=== PATIENT | male | born 1965 | race Caucasian/White ===

== ENCOUNTER 2017-09-09 07:13 | Observation (INO) | payer OTHER ==
[2017-09-09] MEDS ORDERED: NS 1,000 ML IV ONE (07:15)
--- NOTE | 2017-09-09 07:37 | CPEKG ---
Heart Rate: 48 RR Interval: 1250 P-R Interval: 176 QRSD Interval: 90 QT Interval: 460 QTC Interval: 411 P [place]: 33 QRS [place]: 58 T Wave [place]: 49 EKG Severity - OTHERWISE NORMAL ECG - EKG Impression: SINUS BRADYCARDIA Electronically Signed By: Heladio Zaragoza 09-Sep-2017 11:01:50
[2017-09-09] MEDS ORDERED: HEPARIN 10,000 UNIT/10 ML MDV (1,000 UNIT/ML) ONE (07:40)
[2017-09-09] MEDS ORDERED: LIDOCAINE 1% 300 MG/30 ML SDV ONE (07:40)
[2017-09-09] MEDS ORDERED: ISOPROTERENOL HCL/D5W 0.2 MG/50 ML BAG IV ONE ×2 (07:41→10:30)
[2017-09-09] MEDS ORDERED: BUPIVACAINE 0.75% 10 ML SDV EP ONE (07:45)
--- NOTE | 2017-09-09 08:05 | PDANEPAE ---
ANE History of Present Illness SVT ANE Past Medical History - Pulmonary History Hx Sleep Apnea: No ANE Review of Systems Review of Systems: ANE Patient History - Allergies Allergies/Adverse Reactions: No Known Allergies Allergy (Unverified 09/07/17 09:59) - Home Medications Home medications: home medication list seen and reviewed Home Medications: NK [No Known Home Meds] 09/07/17 [Last Taken Unknown] - Anes Hx Anes Hx: post operative nausea - Smoking Hx Smoking Status: Never smoked ANE Labs/Vital Signs - Labs Result Diagrams: 09/09/17 07:40 09/09/17 07:40 - Vital Signs Height: 182.9 cm Weight: 77.2 kg ANE Physical Exam - Airway Neck exam: FROM Mallampati Score: Class 1 Mouth exam: normal dental/mouth exam - Pulmonary Pulmonary: no respiratory distress - Cardiovascular Cardiovascular: regular rate and rhythym - ASA Status ASA Status: II ANE Anesthesia Plan Anesthesia Plan: general endotracheal anesthesia
[2017-09-09 08:31] LABS: PROTIME(PATIENT) 12.4 SEC (12.0-15.0)
[2017-09-09 08:33] LABS: INR 0.9 (0.83-1.16)
[2017-09-09 08:37] LABS: PLATELET COUNT 188 10^3/uL (150-400)
[2017-09-09] MEDS ORDERED: ROCURONIUM 100 MG/10 ML VIAL ONE (08:42)
[2017-09-09] MEDS ORDERED: fentaNYL 100 MCG/2 ML INJ ONE ×2 (08:42)
[2017-09-09] MEDS ORDERED: PROPOFOL 200 MG/20 ML VIAL ONE (08:42)
[2017-09-09] MEDS ORDERED: PROPOFOL/EMULSION 500 MG/50 ML BOTTLE IV ONE (08:44)
--- NOTE | 2017-09-09 08:47 | PDGENHP ---
History & Physical Chief Complaint: Palpitations Relevant Physical Exam: S1-S2 regular rate and rhythm lungs clear to auscultation alert oriented x3 Cardiorespiratory Assessment: 52-year-old male with longstanding palpitations. Supraventricular tachycardia documented on exercise treadmill stress test. For EP study and ablation procedure. Pros and cons of procedure with sedation, no sedation, anesthesia discussed with him. Patient prefers to proceed with general anesthesia. Dr. Richmond was present for this discussion
[2017-09-09] MEDS ORDERED: ONDANSETRON 4 MG/2 ML VIAL ONE (09:13)
[2017-09-09] MEDS ORDERED: DEXAMETHASONE 4 MG/ML VIAL ONE (09:13)
--- NOTE | 2017-09-09 10:54 | EPPROC ---
Electrophysiology Procedure Note: ELECTROPHYSIOLOGIC STUDY AND CATHETER MEDIATED ABLATION OF SLOW/FAST AV BRENDA REENTRY TACHYCARDIA PROCEDURES PERFORMED: 03628-95 EP evaluation with RA/RV/LA pace/record, with arrhythmia induction 81157-68 EP evaluation with RA/RV pace record, insert/reposition catheter, with arrhythmia induction 52086 Intracardiac catheter ablation, SVT arrhythmogenic focus 37999 3D mapping Fluoroscopy INDICATION: Recurrent SVT PROCEDURE: Catheters & Anesthesia: The patient arrived in the Electrophysiology Laboratory in the fasting state. The right clavicular region, right groin, and left groin area were prepped and draped in the usual sterile manner. Anesthesiologist Dr. Richmond administered general anesthesia. Appropriate non-invasive blood pressure, pulse oximetry and end-tidal CO2 monitoring was established. All catheters were placed percutaneously using the modified Seldinger technique , and advanced into position under fluoroscopic guidance. One #6 Austrian hexapolar non-deflectable electrode catheter was inserted into the right atrial appendage via the left femoral vein (2mm spacing; except the proximal ring which was 25cm from the tip used for unipolar recordings). One #7 Austrian deflectable octapolar electrode catheter was advanced to the His-bundle position via the left femoral vein (2mm spacing). One #7 Austrian deflectable quadrapolar catheter was advanced to the anteroseptal right ventricle via the right femoral vein. One #7 Austrian deflectable catheter with 10 pairs of electrodes was placed via the right femoral vein into the coronary sinus. Heparin was given to keep ACT > 200 s. Programmed stimulation was performed from the right atrium, right ventricle and coronary sinus (left atrium). Parahisian pacing demonstrated constant H-A interval with changing V-A intervals and stimulus-A intervals during capture and loss of capture of proximal RBB proving retrograde conduction over AV node. AVNRT was induced easily during infusion of isoproterenol 4 mcg/min. Ventricular extrastimuli delivered during tachycardia without altering antegrade His bundle activation did not advance next atrial potential, indicating that the tachycardia was not utilizing an accessory pathway for retrograde conduction. VA interval was 5 ms. Post entrainment of the tachycardia from the ventricle, there was VAHV response. Mapping of the right atrium and coronary sinus during AVNRT identified earliest atrial activation above the tendon of [place] at a level slightly posterior to the level of the His bundle, consistent with retrograde conduction over the fast AV brenda pathway. A #8 Austrian deflectable quadrapolar electrode catheter (2mm-5mm-2mm spacing) with 4 mm tip electrode and sensor for the 3D mapping Carto system was advanced to the right atrium. 3 D mapping of the inter-atrial septum and coronary sinus was performed and location of the AV node was marked. A SL2 sheath was used. RF applications were delivered to the region between the tricuspid annulus and the coronary sinus ostium, at the level of the upper edge of the coronary sinus ostium. Radiofrequency applications were also delivered along the roof of the proximal coronary sinus. Junctional rhythm occurred during all of the RF applications. Programmed stimulation was continued post ablation at baseline and during graded doses of isoproterenol upto 4mcg/min. Sustained AVNRT was not inducible. There were no echo beats. There was 1 episode of atrial tachycardia, CL 425 ms, induced during isoproterenol infusion 4 mcg/min. This was not targeted for ablation since we could not re-induce it. Early activation was near the right atrial appendage catheter. The catheters were removed. Sheaths were removed in the EP lab after applying subcutaneous purse string suture. The patient was transferred to the cardiovascular holding area in stable condition. There were no apparent complications. Results: A. Spontaneous Intervals: Pre ablation SCL 930 ms AH 80 ms HV 45 ms Post ablation SCL 760 ms AH 75 ms HV 45 ms B. Antegrade AV brenda function (decremental pacing) Pre ablation FPERP 540 ms SPERP 410 ms WBB CL 400 ms (AH jump from 210 ms to 360 ms at FPERP) Post ablation FPERP 410 ms WBB CL 400 ms C. Retrograde AV brenda function (decremental pacing) Pre ablation FPERP 420 ms WBB CL 410 ms D. Arrhythmias: Sustained slow/fast AVNRT Cycle length 375 ms, AH interval 265 ms, ROSS interval 110 ms VA interval 30 ms CONCLUSIONS 1. AV brenda reentrant tachycardia using the slow AV brenda pathway for antegrade conduction and the fast AV brenda pathway for retrograde conduction. ( Slow/fast AVNRT). 2. Successful ablation of the slow AV brenda pathway with elimination of 1:1 antegrade conduction over the slow AV brenda pathway, all retrograde conduction over the slow AV brenda pathway and the inducibility of AVNRT. 3. Right atrial tachycardia, CL 425 ms, seen on one instance x 3 min duration. Not able to reinduce. Not targeted for ablation. 4. No complications. Patient Problems: Problems Problem Status Onset Supraventricular tachycardia Acute
[2017-09-09] MEDS ORDERED: NALOXONE HCL 0.4 MG/ML INJ IVP PRN (11:02)
[2017-09-09] MEDS ORDERED: fentaNYL 100 MCG/2 ML INJ IVP PRN (11:02)
--- NOTE | 2017-09-09 11:03 | POSTANESTH ---
Post Anesthetic Evaluation Cardiovascular Status: Normal, Stable Respiratory Status: Normal, Stable Level of Consciousness/Mental Status: Can Participate in Eval Pain Control: Adequate, Prn Tx Ordered Nausea/Vomiting Control: Adequate, Prn Tx Ordered Complications Possibly Related to Anesthesia: None Noted
--- NOTE | 2017-09-09 11:12 | CPEKG ---
Heart Rate: 71 RR Interval: 845 P-R Interval: 204 QRSD Interval: 94 QT Interval: 424 QTC Interval: 461 P [place]: 67 QRS [place]: 47 T Wave [place]: 46 EKG Severity - NORMAL ECG - EKG Impression: SINUS RHYTHM Electronically Signed By: Heladio Zaragoza 09-Sep-2017 16:52:29
--- NOTE | 2017-09-09 15:14 | ASMTCMCOM ---
CM Note CM Note Notes: 09/09/2017 Case Management Note Reviewed chart. Pt admitted for observation s/p SVT ablation. There are no case management d/c needs identified d/t pt age, marital status, employment status and independence with ADL's prior to admission. There are no PT or OT evals ordered at this time. Case Management d/c poc: independent with follow up as directed. Case Management available if needs change. Date Signed: 09/09/2017 03:13 PM Electronically Signed By:Trista Eisenberg RN
[2017-09-10 04:07] LABS: PLATELET COUNT 168 10^3/uL (150-400)
[2017-09-10 08:06] VITALS: BP 104/65
[2017-09-10] MEDS ORDERED: ASPIRIN 81 MG CHEWABLE TAB PO SCH (09:00)
--- NOTE | 2017-09-10 09:13 | CPEKG ---
Heart Rate: 55 RR Interval: 1091 P-R Interval: 184 QRSD Interval: 86 QT Interval: 424 QTC Interval: 406 P [place]: 19 QRS [place]: 21 T Wave [place]: 26 EKG Severity - NORMAL ECG - EKG Impression: SINUS RHYTHM Electronically Signed By: Heladio Zaragoza 10-Sep-2017 09:23:19
--- NOTE | 2017-09-10 09:27 | ECHO ---
[email or web address] [address] [address] Main: [phone] Fax: Transthoracic Echocardiogram Name: MICHAELLE CHRISTIANSON MR#: [id number] Study Date: 09/10/2017 Study Time: 07:50 AM Date of : 1965 Age: 52 year(s) Height: 182.9 cm (72 in.) Weight: 77.11 kg (170 lb.) BSA: 1.99 m2 Gender: Male Examination: Echo Indication: Post EP Image Quality: Contrast: Requested by: Heladio Zaragoza BP: 105 mmHg/65 mmHg Heart Rate: Rhythm: Indication: Post EP Procedure Staff Hot Dog Vendor: Vasu Georges RDCS Reading Physician: Heladio Zaragoza MD Requesting Provider: Heladio Zaragoza MD Conclusions: Normal global systolic LV function. The right atrium is borderline dilated. Small pericardial effusion. Small pericardial effusion was reported on echocardiogram at [facility] pre ablation. Measurements: Chambers Valvular Assessment AV/MV Valvular Assessment TV/PV Normal Normal Normal Name Value Range Name Value Range Name Value Range Ao Samira (MM): 3.0 cm (2.2 cm-3.7 AV Vmax: 1.30 m/s (1 m/s-1.7 TR Vmax: 2.63 mm/s ( - ) cm) m/s) TR PGmax: 28 mmHg ( - ) IVSd (2D): 0.9 cm (0.6 cm-1.1 AV maxP mmHg ( - ) syst. PAP: 33 mmHg ( - ) cm) LVOT Vmax: 1.13 m/s (0.7 m/s-1.1 PV Vmax: 0.65 m/s (0.6 m/s-0.9 LVDd (2D): 4.5 cm (4.2 cm-5.9 m/s) m/s) cm) MV E Vmax: 0.80 m/s ( - ) PV PGmax: 2 mmHg ( - ) LVDs (2D): 2.8 cm (2.1 cm-4 MV A Vmax: 0.59 m/s ( - ) cm) MV E/A: 1.36 ( - ) LVPWd (2D): 0.9 cm (0.6 cm-1 cm) LVEF (2D): 68 (>=54 %) Continued Measurements: Chambers Valvular Assessment TV/PV Name Value Name Value LADs Lon.1 cm CVP (est.): 5 mmHg LA Area: 15.5 cm2 LA Volume: 42 ml LA Volume Index: 21.1 ml/m2 Patient: MICHAELLE CHRISTIANSON Study Date: 09/10/2017 Page 1 of 2 07:50 AM Findings: Left Ventricle: Normal size left ventricle. No LV hypertrophy. Normal global systolic LV function. EF is 68 %. No regional wall motion abnormality. Normal diastolic LV function. Right Ventricle: Normal size right ventricle. Normal RV function. Left Atrium: The left atrium is normal in size. Right Atrium: The right atrium is borderline dilated. Mitral Valve: The mitral valve is normal in appearance and function. Trivial mitral valve regurgitation. Aortic Valve: The aortic valve is normal in appearance and function. The aortic valve is tri-leaflet. Tricuspid Valve: The pulmonary artery pressure is normal. Trivial to mild tricuspid valve regurgitation. Pulmonic Valve: The pulmonic valve is normal in appearance and function. Aorta: The aorta is normal. Pericardium: Small pericardial effusion. No echocardiographic evidence of hemodynamic compromise. (No Signature Object) Patient: MICHAELLE CHRISTIANSON Study Date: 09/10/2017 Page 2 of 2 07:50 AM [id number]
--- NOTE | 2017-09-10 12:39 | GDS ---
[f rep st] DISCHARGE SUMMARY ADMIT DIAGNOSES: 1. Supraventricular tachycardia and nonsustained ventricular tachycardia. 2. Planned supraventricular tachycardia ablation. DISCHARGE DIAGNOSES: 1. 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 2. Supraventricular tachycardia. 3. Nonsustained ventricular tachycardia. COURSE OF HOSPITALIZATION: This gentleman was seen in clinic by Dr. Zaragoza in May 2017. He had a longstanding history of palpitations since age 13. He currently is a commercial front load driver. He has noted the palpitations increasing with frequency, at times he becomes nauseated with the episodes. Typically, he was able to stop the episodes by holding his breath or doing deep breathing. He was not having any episodes of dizziness or syncope. Dr. Zaragoza, at that time, discussed treatment options including no treatment at all, treatment with beta blockers or calcium channel blockers, or possible ablation procedure. He declined taking medications and preferred proceeding with ablation therapy. This was reviewed at length with him at that time, including possible need for transseptal puncture. He then was brought in for the electrophysiology study on September 09, 2017, where Dr. Zaragoza was able to isolate and successfully ablate, AVNRT ablation was performed. At this time, he has been up ambulating in the room. He has no groin site problems. He did have noted on echocardiogram a small pericardial effusion. The etiology of this is not known. Dr. Zaragoza recommends that he be evaluated by Rheumatology, by Dr. Amandeep Godinez at [facility], to further evaluate for cause. He is in agreement with this plan. He was given information to call and set up his appointment. At this time, he currently is stable and ready for discharge. ELECTROPHYSIOLOGY STUDY: Electrophysiology study on 09/09/2017, with Dr. Heladio Zaragoza. There were no complications. CONCLUSIONS OF TEST: 1. AV nader reentrant tachycardia using the slow AV nader pathway for antegrade conduction and the fast AV nader pathway for retrograde conduction ( slow/fast AVNRT). 2. Successful ablation of the slow AV nader pathway with elimination of 1-1 antegrade conduction over the slow AV nader pathway, all retrograde conduction over the slow AV nader pathway, and THE inducibility of AVNRT. 3. Right atrial tachycardia CL 425 milliseconds seen once_ x3 minute duration, not able to reintroduce, not targeted for ablation. 4. No complications. MEDICATIONS: He has no allergies. He will be sent home on aspirin 81 mg daily. OTHER REPORTS: On 09/10/2017, transthoracic echocardiogram findings: 1. LV function with ejection fraction of 68%. No wall motion abnormalities. 2. Mitral valve normal with trivial valve regurgitation. Aortic valve normal and is trileaflet. Tricuspid valve normal. Trivial to mild tricuspid valve regurgitation. Pulmonic valve normal in appearance and function. 3. Small pericardial effusion with no echographic evidence of hemodynamic compromise. On electrocardiogram shows: A heart rate of 55, QTc interval 406. Normal EKG with normal sinus rhythm. DISCHARGE PLAN: 1. He will be discharged home with aspirin 81 mg daily. 2. Followup with Dr. Zaragoza in 1 month. 3. Have an echocardiogram done in 1 month prior to his followup appointment. 4. Dr. Zaragoza's nurse, CARA Larry, was notified to call him with an appointment time for both his echocardiogram and followup appointment. 5. He is to be evaluated by Dr. Amandeep Godinez due to the echocardiogram findings of a small pericardial effusion. Information given to him to set up this appointment. 6. He is to follow up with his primary care physician in the next month. 7. He will have [facility] paperwork to be completed prior to his return to work. He will provide this paperwork to Dr. Zaragoza's clinic nurse. 8. Dr. Zaragoza did talk to him about seeing the [facility] physician, Dr. Isaac Tavares , for return to work. 9. Jose Luis plans on returning to work no sooner than 90 days. All questions were answered, and he is stable for discharge. /[id number]/MODL MTDD
== END 2017-09-10 11:03 | disposition home or self-care (01) ==
LOC: FCATH 07:13 → F2W 10:54
PROVIDERS: ADMIT Internal Medicine Cardiovascular Disease; ATTEND Internal Medicine Cardiovascular Disease
PROC: 02563ZZ Destruction of Right Atrium, Percutaneous Approach (ICD-10-PCS; principal; 2017-09-09)
PROC: 02573ZZ Destruction of Left Atrium, Percutaneous Approach (ICD-10-PCS; principal; 2017-09-09)
PROC: 5A1213Z Performance of Cardiac Pacing, Intermittent (ICD-10-PCS; principal; 2017-09-09)
PROC: 4A023FZ Measurement of Cardiac Rhythm, Percutaneous Approach (ICD-10-PCS; principal; 2017-09-09)
PROC: 02K83ZZ Map Conduction Mechanism, Percutaneous Approach (ICD-10-PCS; principal; 2017-09-09)
PROC: 025K3ZZ Destruction of Right Ventricle, Percutaneous Approach (ICD-10-PCS; principal; 2017-09-09)
PROC: 02H73MZ Insertion of Cardiac Lead into Left Atrium, Percutaneous Approach (ICD-10-PCS; principal; 2017-09-09)
DX: I47.1 Supraventricular tachycardia (principal)
CPT/HCPCS: 93005; 93306; 93613; 93621; 93623; 93653; C1730; C1732; C1893; G0378; C1731; J1100; J1644; J2405; J2704; J3010

== ENCOUNTER → 2017-09-25 | Outpatient (CLI) | payer OTHER | LOC: BMCIMAGING 11:05 | PROVIDERS: ATTEND Internal Medicine Rheumatology | DX: Z87.09 Personal history of other diseases of the respiratory system (principal) ==

== ENCOUNTER → 2017-12-31 | Outpatient (CLI) | payer OTHER | LOC: CIMAGING 11:21 | PROVIDERS: ATTEND Internal Medicine Cardiovascular Disease | DX: R91.8 Other nonspecific abnormal finding of lung field (principal); I31.3 Pericardial effusion (noninflammatory); M51.34 Other intervertebral disc degeneration, thoracic region | CPT/HCPCS: 71250-PO ==